=== PATIENT | female | born 1980 | race Caucasian/White ===

== ENCOUNTER 2021-12-14 09:12 | Emergency (ER) | payer OTHER, SELFPAY ==
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
[2021-12-14 09:28] VITALS: BP 164/103; PULSE 100; RESP 18; TEMP 37.2; O2SAT 100
[2021-12-14 09:30] VITALS: BP 164/103; PULSE 100; RESP 18; TEMP 37.2; O2SAT 100
== END 2021-12-14 09:46 | disposition home or self-care (01) ==
PROVIDERS: Emergency Provider Nurse Practitioner Family
DX: R22.0 Localized swelling, mass and lump, head (principal); T78.40XA Allergy, unspecified, initial encounter
CPT/HCPCS: 99213; G0463